=== PATIENT | female | born 1980 ===

== ENCOUNTER 2018-10-17 03:13 | Emergency (ER) | payer OTHER, SELFPAY ==
[2018-10-17 03:20] VITALS: BP 150/96; PULSE 80; RESP 16; TEMP 36.7; O2SAT 97; BMI 32.5
--- NOTE | 2018-10-17 03:37 | DI.US.S_ITS ---
PROCEDURE: US PELVIC COMPLETE INDICATIONS: SEVERE RIGHT LOWER QUADRANT PAIN, VAGINAL BLEEDING TECHNIQUE: Real-time scanning was performed of the pelvic organs, with image documentation. Additional endovaginal scanning was necessary due to incomplete visualization of the adnexal and endometrial structures by transabdominal scanning. COMPARISON: None. FINDINGS: Transabdominal scanning: Limited scanning through the kidneys shows no hydronephrosis. No pathologic free abdominal or pelvic fluid. Endovaginal scanning: Uterus: Uterus is normal in size at 8.7 x 4.3 x 4.6 cm. The endometrium measures 4 mm in combined thickness. Heterogeneous myometrium echotexture is seen. 2 x 1.7 x 2.1 cm intramural fibroid is seen in posterior myometrium. Small nabothian cysts are noted in the endocervical canal with a few punctate calcifications. No gross endometrial mass or fluid. Ovaries: Right ovary measures 2.8 x 1.6 x 1.8 cm in size. Left ovary measures 2.8 x 1.4 x 1.8 cm in size. Dominant follicle in right ovary is seen and measures 1 cm in size. No gross solid appearing ovary lesion. Normal blood flow is seen in bilateral ovaries on color Doppler images. IMPRESSION: #1. Intramural fibroid as above. No gross endometrial mass or fluid. #2. No gross abnormality is seen in bilateral ovaries. No significant discrepancies. Dictated by: Girma Luevano M.D. on 10/17/2018 at 8:22 Approved by: Girma Luevano M.D. on 10/17/2018 at 8:34
[2018-10-17] MEDS: KETOROLAC 60 MG/2 ML VIAL 15 MG IV (03:45)
[2018-10-17] MEDS: ONDANSETRON 4 MG/2 ML INJ IV (03:45)
[2018-10-17 03:46] LABS: Appearance Urine UA CLEAR; Bilirubin Urine UA NEGATIVE (NEGATIVE); Color Urine UA YELLOW; Glucose Urine UA NEGATIVE (Negative); Ketones Urine UA NEGATIVE (NEGATIVE); Leukocyte Esterase Urine UA TRACE (NEGATIVE); Nitrite Urine UA NEGATIVE (Negative); Occult Blood Urine UA 3+ (Negative); Protein Urine UA NEGATIVE (Negative); Urobilinogen Urine UA 0.2 E.U./dL (0.2); pH Urine UA 5.5 (4.5-8.0)
[2018-10-17 04:03] LABS: Add Manual Diff / Slide Review NO; Basophils Absolute Auto 100 /uL (0-100); Eosinophils Absolute Auto 100 /uL (0-450); Eosinophils Percent Auto 0.9 % (2-4); Hematocrit 43.7 % (36-46); Hemoglobin 14.9 g/dL (12.0-16.0); Lymphocytes Absolute Auto 3200 /uL (1100-4500); Lymphocytes Percent Auto 24.4 % (25-40); Mean Corpuscular HGB Conc 34.1 % (30-36); Mean Corpuscular Hemoglobin 29.4 PG (26-34); Mean Corpuscular Volume 86.4 fL (80-100); Monocytes Absolute Auto 700 /uL (0-900); Monocytes Percent Auto 5.3 % (3-14); Neutrophils Absolute Auto 9000 /uL (1500-7000); Neutrophils Percent Auto 68.4 % (50-75); Platelet Count 272 X10^3/uL (150-400); Red Blood Cell Count 5.06 X10^6/uL (4.0-5.2); Red Cell Distribution Width 14.3 % (11.6-14.8); White Blood Cell Count 13.1 X10^3/uL (4.5-11.0)
--- NOTE | 2018-10-17 04:04 | ED_ITS ---
HPI - Abdominal Pain General Chief Complaint: Abdominal Pain Stated Complaint: Pain in bottom right side of stomach Time Seen by Provider: 10/17/18 03:15 Source: patient Mode of arrival: ambulatory Limitations: no limitations History of Present Illness HPI narrative: 38-year-old female smoker with minimal medical history presents with a chief complaint of sudden onset right lower quadrant pain with the passage of some dark clots vaginally. She has not had a period in many years, since she had an ablation. She denies any dysuria, frequency or urgency. She denies any vomiting but has been nauseated. She has had no fever or shaking chills. She states her symptoms came on very suddenly. Her pain is worse with motion and improves with rest. MD complaint: abdominal pain Onset (ago): hour(s) Pain Consistency: constant Location: RLQ Severity: moderate Quality: cramping and aching Radiation: none Migration to: no migration Relieving factors: nothing Exacerbating factors: nothing Context: foreign travel Related Data Previous Rx's Medication Instructions Recorded ketorolac 10 mg PO Q6H PRN #14 tab 10/17/18 ondansetron 4 mg PO TID-QID PRN #10 tab 10/17/18 Allergies Allergy/AdvReac Type Severity Reaction Status Date / Time Penicillins Allergy Verified 10/17/18 03:31 Review of Systems Constitutional Denies chills, Denies fever(s), Denies lethargy and Denies weakness Eyes Denies change in vision, Denies eye discharge, Denies irritation and Denies loss of vision ENT Ears, Nose, Mouth, and Throat: Denies change in voice, Denies neck pain and Denies sore throat Cardiovascular Denies chest pain, Denies irregular heart rhythm, Denies lightheadedness, Denies palpitations, Denies dyspnea, Denies dyspnea on exertion and Denies orthopnea Respiratory Denies cough, Denies dyspnea, Denies dyspnea on exertion and Denies wheezing Gastrointestinal Gastrointestinal: Reports abdominal pain, Denies change in bowel habits, Denies diarrhea, Denies nausea and Denies vomiting Genitourinary Reports abnormal vaginal bleeding, Denies hematuria, Denies flank pain, Denies urinary incontinence and Denies urinary urgency Musculoskeletal Denies neck pain Integumentary/Breasts Denies pruritus, Denies erythema, Denies rash and Denies wounds Neurologic Denies confusion, Denies loss of vision and Denies weakness Psychiatric Denies anxiety, Denies confusion, Denies depression, Denies homicidal ideation and Denies suicidal ideation Endocrine Denies palpitations Hematologic/Lymphatic Denies easy bruising Allergic/Immunologic Denies wheezing PFSH Social History Smoking Status: Current every day smoker Social History Smoking Status: Current every day smoker Exam Narrative Exam Narrative: GENERAL: 38-year-old female, obviously in some discomfort, morbidly obese HEAD: Atraumatic. Normocephalic. No temporal or scalp tenderness. EYES: Pupils equal round and reactive. Extraocular motions intact. No scleral icterus. No injection or drainage. ENT: Nose without bleeding, purulent drainage or septal hematoma. Throat without erythema, tonsillar hypertrophy or exudate. Uvula midline. Airway patent. NECK: Trachea midline. No JVD or lymphadenopathy. Supple, nontender, no meningeal signs. CARDIOVASCULAR: Regular rate and rhythm without murmurs, gallops, or rubs. RESPIRATORY: Clear to auscultation. Breath sounds equal bilaterally. No wheezes, rales, or rhonchi. GASTROINTESTINAL: Abdomen soft, tender right lower quadrant, nondistended. No hepato-splenomegaly, or palpable masses. No guarding. EXTREMITIES: No clubbing, cyanosis, or edema. No joint tenderness, effusion, or edema noted. BACK: Nontender without deformity or crepitance. No flank tenderness. NEURO: AOx3. SKIN: No rash or erythema. Initial Vital Signs Initial Vital Signs: Vital Signs Temperature 98.0 F 10/17/18 03:20 Pulse Rate 80 10/17/18 03:20 Respiratory Rate 16 10/17/18 03:20 Blood Pressure 150/96 H 10/17/18 03:20 Pulse Oximetry 97 10/17/18 03:20 Course Orders Ordered: ED Orders 10/17/18 03:35 Urinalysis and Microscopic Stat Urine Culture Stat 10/17/18 03:37 US pelvic complete Stat 10/17/18 03:54 Basic Metabolic Panel Stat Complete Blood Count AUTO DIFF Stat Ondansetron HCl (Zofran) 4 mg IV Q4HR PRN PRN Reason: Nausea And Vomiting Last Admin: 10/17/18 03:45 Dose: 4 mg Discontinued Medications Acetaminophen (Tylenol) 650 mg PO NOW ONE Stop: 10/17/18 04:40 Last Admin: 10/17/18 04:40 Dose: 650 mg Hydrocodone Bitart/Acetaminophen (Vicodin Prepack) 1 bottle MISC SEEINSTR ONE Stop: 10/17/18 05:11 Ketorolac Tromethamine (Toradol) 15 mg IV NOW ONE Stop: 10/17/18 03:37 Last Admin: 10/17/18 03:45 Dose: 15 mg Vital Signs - 8 hr 10/17/18 03:20 Temperature 98.0 F Pulse Rate 80 Respiratory Rate 16 Blood Pressure 150/96 H Pulse Oximetry 97 MDM - Abdominal Pain Lab Data Result diagrams: 10/17/18 03:54 10/17/18 03:54 Lab Results 10/17/18 10/17/18 10/17/18 Range/Units 03:35 03:54 03:54 WBC 13.1 H (4.5-11.0) X10^3/uL RBC 5.06 (4.0-5.2) X10^6/uL Hgb 14.9 (12.0-16.0) g/dL Hct 43.7 (36-46) % MCV 86.4 (80-100) fL MCH 29.4 (26-34) PG MCHC 34.1 (30-36) % RDW 14.3 (11.6-14.8) % Plt Count 272 (150-400) X10^3/uL Neut % (Auto) 68.4 (50-75) % Lymph % (Auto) 24.4 L (25-40) % [place] % (Auto) 5.3 (3-14) % Eos % (Auto) 0.9 L (2-4) % Baso % (Auto) 1.0 (0-2) % Neut # (Auto) 9000 H (9149-7871) /uL Lymph # (Auto) 3200 (2769-8416) /uL [place] # (Auto) 700 (0-900) /uL Eos # (Auto) 100 (0-450) /uL Baso # (Auto) 100 (0-100) /uL Sodium 141 (137-145) mmol/L Potassium 3.6 (3.4-5.1) mmol/L Chloride 105 (98-107) mmol/L Carbon Dioxide 27 (22-32) mmol/L BUN 9 (7-17) mg/dL Creatinine 0.60 (0.52-1.04) mg/dL Estimated GFR > 60.0 (>60) mL/min BUN/Creatinine Ratio 15.0 (6-22) Glucose 97 (70-100) mg/dL Calcium 8.7 (8.4-10.2) mg/dL Urine Color Yellow Urine Appearance Clear Urine pH 5.5 (4.5-8.0) Ur Specific [place] 1.010 (1.000-1.035) Urine Protein Negative (Negative) Urine Glucose (UA) Negative (Negative) g/dL Urine Ketones Negative (NEGATIVE) Urine Occult Blood 3+ H (Negative) Urine Nitrate Negative (Negative) Urine Bilirubin Negative (NEGATIVE) Urine Urobilinogen 0.2 (0.2) E.U./dL Ur Leukocyte Esterase Trace H (NEGATIVE) Urine RBC 1-5/hpf (0-5/HPF) Urine WBC 0-1/hpf (0-5/HPF) Ur Squamous Epith Cells 1-5 /hpf Urine Bacteria Few (2-10) H (None) Ur Culture Indicated? Specimen cultured Point of care testing: Point of Care Testing Test Results Negative Urine Dip Bedside Urine Glucose Negative Bedside Urine Bilirubin - Negative Bedside Urine Ketone - Negative Urine Specific [place] 1.015 Bedside Urine Occult Blood +++ Bedside Urine Protein - Negative Bedside Urine Urobilinogen - Negative Bedside Urine Nitrite - Negative Bedside Urine Leukocytes +/- 15 Esterase Imaging Data US - abdomen: Radiologist's impression: Normal sonographic appearance of the endometrium and bilateral adnexa. Fibroid uterus Discharge Plan Departure Patient Disposition: Home Clinical Impression: Abnormal vaginal bleeding Fibroid, uterine Qualifiers: Uterine leiomyoma location: unspecified location Qualified Code(s): D25.9 - Leiomyoma of uterus, unspecified Instructions: DI for Vaginal Bleeding, DI for Pelvic Pain Activity Restrictions/Additional Instructions: *You have been diagnosed with [ acute pelvic pain with vaginal bleeding, likely uterine fibroid ] *What to do: *Take medications as directed *Follow up with your primary care provider in 2-3 days, call for an appointment. Let them know you were seen in the Emergency Department and that we ask that you be seen in follow up *Return to ER if you should have any new, worsening or concerning symptoms Prescriptions: New ketorolac 10 mg tablet 10 mg PO Q6H PRN (Reason: pain) Qty: 14 RF: 0 ondansetron 4 mg tablet,disintegrating 4 mg PO TID-QID PRN (Reason: nausea and vomiting) Qty: 10 RF: 0 Referrals: Suki Alvares MD [Physician] -
[2018-10-17 04:05] LABS: Bacteria Urine Few (2-10); Culture Indicated Urine Specimen Cultured; RBC Urine 1-5/HPF (0-5/HPF); Squamous Epithelial Cell Urine 1-5 /HPF; WBC Urine 0-1/HPF (0-5/HPF)
[2018-10-17 04:07] LABS: Blood Urea Nitrogen 9 mg/dL (7-17); Calcium 8.7 mg/dL (8.4-10.2); Carbon Dioxide 27 mmol/L (22-32); Chloride 105 mmol/L (98-107); Estimated Glomerular Filt Rate > 60.0 mL/min (>60); Glucose 97 mg/dL (70-100); HEMOLYSIS 15 (0-50); Potassium 3.6 mmol/L (3.4-5.1); Sodium 141 mmol/L (137-145)
[2018-10-17] MEDS: ACETAMINOPHEN 325 MG TABLET 650 MG PO (04:40)
[2018-10-17] MEDS: HYDROCODONE/ACET 5/325 PREPACK 1 BOTTLE MISC (05:10)
[2018-10-17 05:23] VITALS: BP 112/70; PULSE 69; RESP 12; O2SAT 96
== END 2018-10-17 05:15 | disposition home or self-care (01) ==
PROVIDERS: Emergency Provider Emergency Medicine
DX: N93.9 Abnormal uterine and vaginal bleeding, unspecified (principal); D25.9 Leiomyoma of uterus, unspecified; R10.9 Unspecified abdominal pain
CPT/HCPCS: 36591; 76830; 76856; 80048; 81001; 81003; 81025; 85025; 87086; 96374; 96375; 99282; 99284; J1885; J2405

== ENCOUNTER 2018-10-19 20:23 | Emergency (ER) | payer OTHER, SELFPAY ==
[2018-10-19 20:25] VITALS: BP 126/77; PULSE 85; RESP 18; TEMP 36.7; O2SAT 99; BMI 32.5
--- NOTE | 2018-10-19 20:44 | DI.US.S_ITS ---
PROCEDURE: US PELVIC COMPLETE INDICATIONS: PAIN TECHNIQUE: Real-time scanning was performed of the pelvic organs, with image documentation. Additional endovaginal scanning was necessary due to incomplete visualization of the adnexal and endometrial structures by transabdominal scanning. COMPARISON: [facility], , US PELVIC COMPLETE, 10/17/2018, 4:11. FINDINGS: Transabdominal scanning: Limited scanning through the kidneys shows no hydronephrosis. No pathologic free abdominal or pelvic fluid. Endovaginal scanning: Uterus: Uterus is normal in size at 7.9 x 4.1 x 6.1 cm. The endometrium measures 4.2 mm in combined thickness. Heterogeneous myometrial echotexture is noted. No discrete uterine fibroid is seen. No gross endometrial mass or fluid. Ovaries: Right ovary measures 2.6 x 2.3 x 2.3 cm in size. Left ovary measures 2.6 x 1.4 x 1.5 cm in size. No gross solid or paraovarian lesion. Normal blood flow seen in bilateral ovaries on color Doppler images. IMPRESSION: Unremarkable ultrasound examination of pelvis. Dictated by: Girma Luevano M.D. on 10/19/2018 at 21:36 Approved by: Girma Luevano M.D. on 10/19/2018 at 21:38
[2018-10-19] MEDS: SODIUM CHLORIDE 0.9% 1,000 ML 1000 ML IV (20:55)
[2018-10-19 20:56] LABS: Add Manual Diff / Slide Review NO; Basophils Absolute Auto 100 /uL (0-100); Basophils Percent Auto 1.3 % (0-2); Eosinophils Absolute Auto 100 /uL (0-450); Eosinophils Percent Auto 0.7 % (2-4); Hematocrit 43.6 % (36-46); Hemoglobin 14.8 g/dL (12.0-16.0); Lymphocytes Absolute Auto 2700 /uL (1100-4500); Lymphocytes Percent Auto 24.9 % (25-40); Mean Corpuscular HGB Conc 33.9 % (30-36); Mean Corpuscular Hemoglobin 29.5 PG (26-34); Mean Corpuscular Volume 86.8 fL (80-100); Monocytes Absolute Auto 500 /uL (0-900); Monocytes Percent Auto 4.6 % (3-14); Neutrophils Absolute Auto 7400 /uL (1500-7000); Neutrophils Percent Auto 68.5 % (50-75); Platelet Count 261 X10^3/uL (150-400); Red Blood Cell Count 5.03 X10^6/uL (4.0-5.2); Red Cell Distribution Width 14.8 % (11.6-14.8); White Blood Cell Count 10.8 X10^3/uL (4.5-11.0)
[2018-10-19 21:01] LABS: Alanine Aminotransferase 18 IU/L (9-52); Albumin 4.2 g/dL (3.5-5.0); Albumin Globulin Ratio 1.3 (1.0-2.8); Alkaline Phosphatase 48 U/L (38-126); Aspartate Aminotransferase 18 IU/L (14-36); BUN Creatinine Ratio 16.3 (6-22); Bilirubin Total 0.3 mg/dL (0.2-1.3); Blood Urea Nitrogen 13 mg/dL (7-17); Calcium 8.8 mg/dL (8.4-10.2); Carbon Dioxide 28 mmol/L (22-32); Chloride 104 mmol/L (98-107); Estimated Glomerular Filt Rate > 60.0 mL/min (>60); Globulin 3.2 g/dL (1.7-4.1); Glucose 118 mg/dL (70-100); HEMOLYSIS < 15 (0-50); Potassium 3.7 mmol/L (3.4-5.1); Sodium 140 mmol/L (137-145); Total Protein 7.4 g/dL (6.3-8.2)
--- NOTE | 2018-10-19 21:04 | ED.FEMALEGU ---
HPI - Female Genitourinary <STEWART Robb - Last Filed: 10/19/18 21:57> General Chief complaint: Vaginal Bleeding Stated complaint: lower right abdominal pain x several days Time Seen by Provider: 10/19/18 20:27 Source: patient Mode of arrival: ambulatory Limitations: no limitations History of Present Illness HPI Narrative: Patient is a 38-year-old female who was seen at this facility 2 days ago. She was diagnosed with uterine fibroids at that point time. She comes back with worsening right lower quadrant pain, which her Toradol is not helping. She continues to complain of nausea. She also complains of difficulty having bowel movements. She denies any fevers vomiting or diarrhea. She states she is back because her pain is significantly worse and she is worried as she is still bleeding. She states that her right lower quadrant pain is now going across her stomach. She denies any dysuria urgency or frequency. She states she has had a tubal ligation. 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 She does complain of slight dizziness and lightheadedness, especially when moving. Related Data Previous Rx's Medication Instructions Recorded ketorolac 10 mg PO Q6H PRN #14 tab 10/17/18 ondansetron 4 mg PO TID-QID PRN #10 tab 10/17/18 Allergies Allergy/AdvReac Type Severity Reaction Status Date / Time Penicillins Allergy Verified 10/17/18 03:31 Review of Systems <STEWART Robb - Last Filed: 10/19/18 21:57> Review of Systems GENERAL: Denies chills, fatigue, malaise, fever, sweats. HEENT: Denies sinus pain, ear pain, sore throat, difficulty swallowing, dizziness. RESPIRATORY: Denies dyspnea, cough, wheezing, hemoptysis, sputum. CARDIOVASCULAR: Denies chest pain, palpitations, orthopnea, edema, GASTROINTESTINAL: See HPI : See HPI MUSCULOSKELETAL: denies weakness, joint pain, or bony pain SKIN: Denies rash, skin lesions, or other NEUROLOGIC: Denies weakness, headache, numbness, change in speech, confusion, seizures, incoordination. PSYCHIATRIC: No concerning psychosocial issues. 12 point review of systems is negative except for those stated above PFSH <STEWART RobbDANTE - Last Filed: 10/19/18 21:57> Social History Smoking Status: Current every day smoker Exam <GAURAV Robb - Last Filed: 10/19/18 21:57> Narrative Exam Narrative: GENERAL: Obese female lying on stretcher appears teary HEAD: Atraumatic. Normocephalic. No temporal or scalp tenderness. EYES: Pupils equal round and reactive. Extraocular motions intact. No scleral icterus. No injection or drainage. ENT: Nose without bleeding, purulent drainage or septal hematoma. Throat without erythema, tonsillar hypertrophy or exudate. Uvula midline. Airway patent. NECK: Trachea midline. No JVD or lymphadenopathy. Supple, nontender, no meningeal signs. CARDIOVASCULAR: Regular rate and rhythm RESPIRATORY: Clear to auscultation. Breath sounds equal bilaterally. No wheezes, rales, or rhonchi. No cough. No increased respiratory effort. GASTROINTESTINAL: Abdomen soft, active bowel sounds all 4 quadrants, nondistended. No hepato-splenomegaly, or palpable masses. No guarding. diffuse tenderness right lower quadrant suprapubic area. EXTREMITIES: No clubbing, cyanosis, or edema. No joint tenderness, effusion, or edema noted. BACK: Nontender without deformity or crepitance. No flank tenderness. NEURO: AOx3. SKIN: No rash or erythema. Initial Vital Signs Initial Vital Signs: Vital Signs Temperature 98.1 F 10/19/18 20:25 Pulse Rate 85 10/19/18 20:25 Respiratory Rate 18 10/19/18 20:25 Blood Pressure 126/77 10/19/18 20:25 Pulse Oximetry 99 10/19/18 20:25 <Leigh Chatman MD - Last Filed: 10/19/18 23:10> Initial Vital Signs Initial Vital Signs: Vital Signs Temperature 98.1 F 10/19/18 20:25 Pulse Rate 85 10/19/18 20:25 Respiratory Rate 18 10/19/18 20:25 Blood Pressure 126/77 10/19/18 20:25 Pulse Oximetry 99 10/19/18 20:25 Course <GAURAV Robb - Last Filed: 10/19/18 21:57> Orders Ordered: ED Orders 10/19/18 20:41 Complete Blood Count AUTO DIFF Stat Comprehensive Metabolic Panel Stat Type and Screen Stat 10/19/18 20:44 US pelvic complete Stat Discontinued Medications Hydrocodone Bitart/Acetaminophen ([place] 5/325) 2 tab PO NOW ONE Stop: 10/19/18 21:44 Last Admin: 10/19/18 21:57 Dose: 2 tab Hydrocodone Bitart/Acetaminophen (Vicodin Prepack) 1 bottle MISC SEEINSTR ONE Stop: 10/19/18 21:44 Last Admin: 10/19/18 21:56 Dose: 1 bottle Sodium Chloride (Normal Saline 0.9%) 1,000 mls @ 1,000 mls/hr IV BOLUS ONE Stop: 10/19/18 21:40 Last Infusion: 10/19/18 22:02 Dose: 0 mls/hr Admin: 10/19/18 20:55 Dose: 1,000 mls/hr Ketorolac Tromethamine (Toradol) 30 mg IV NOW ONE Stop: 10/19/18 21:28 Last Admin: 10/19/18 21:35 Dose: 30 mg Ondansetron HCl (Zofran) 4 mg IV NOW ONE Stop: 10/19/18 21:28 Last Admin: 10/19/18 21:35 Dose: 4 mg Vital Signs - 8 hr 10/19/18 20:25 10/19/18 21:56 Temperature 98.1 F Pulse Rate 85 70 Respiratory Rate 18 16 Blood Pressure 126/77 Blood Pressure [Right Arm] 108/70 Pulse Oximetry 99 100 <Leigh Chatman MD - Last Filed: 10/19/18 23:10> Orders Ordered: ED Orders 10/19/18 20:41 Complete Blood Count AUTO DIFF Stat Comprehensive Metabolic Panel Stat Type and Screen Stat 10/19/18 20:44 US pelvic complete Stat Discontinued Medications Hydrocodone Bitart/Acetaminophen ([place] 5/325) 2 tab PO NOW ONE Stop: 10/19/18 21:44 Last Admin: 10/19/18 21:57 Dose: 2 tab Hydrocodone Bitart/Acetaminophen (Vicodin Prepack) 1 bottle MISC SEEINSTR ONE Stop: 10/19/18 21:44 Last Admin: 10/19/18 21:56 Dose: 1 bottle Sodium Chloride (Normal Saline 0.9%) 1,000 mls @ 1,000 mls/hr IV BOLUS ONE Stop: 10/19/18 21:40 Last Infusion: 10/19/18 22:02 Dose: 0 mls/hr Admin: 10/19/18 20:55 Dose: 1,000 mls/hr Ketorolac Tromethamine (Toradol) 30 mg IV NOW ONE Stop: 10/19/18 21:28 Last Admin: 10/19/18 21:35 Dose: 30 mg Ondansetron HCl (Zofran) 4 mg IV NOW ONE Stop: 10/19/18 21:28 Last Admin: 10/19/18 21:35 Dose: 4 mg Vital Signs - 8 hr 10/19/18 20:25 10/19/18 21:56 Temperature 98.1 F Pulse Rate 85 70 Respiratory Rate 18 16 Blood Pressure 126/77 Blood Pressure [Right Arm] 108/70 Pulse Oximetry 99 100 MDM - Female Genitourinary <STEWART Robb - Last Filed: 10/19/18 21:57> Lab Data Result diagrams: 10/19/18 20:41 10/19/18 20:41 Lab Results 10/19/18 10/19/18 10/19/18 Range/Units 20:41 20:41 20:41 WBC 10.8 (4.5-11.0) X10^3/uL RBC 5.03 (4.0-5.2) X10^6/uL Hgb 14.8 (12.0-16.0) g/dL Hct 43.6 (36-46) % MCV 86.8 (80-100) fL MCH 29.5 (26-34) PG MCHC 33.9 (30-36) % RDW 14.8 (11.6-14.8) % Plt Count 261 (150-400) X10^3/uL Neut % (Auto) 68.5 (50-75) % Lymph % (Auto) 24.9 L (25-40) % [place] % (Auto) 4.6 (3-14) % Eos % (Auto) 0.7 L (2-4) % Baso % (Auto) 1.3 (0-2) % Neut # (Auto) 7400 H (3331-6486) /uL Lymph # (Auto) 2700 (7884-1089) /uL [place] # (Auto) 500 (0-900) /uL Eos # (Auto) 100 (0-450) /uL Baso # (Auto) 100 (0-100) /uL Sodium 140 (137-145) mmol/L Potassium 3.7 (3.4-5.1) mmol/L Chloride 104 (98-107) mmol/L Carbon Dioxide 28 (22-32) mmol/L BUN 13 (7-17) mg/dL Creatinine 0.80 (0.52-1.04) mg/dL Estimated GFR > 60.0 (>60) mL/min BUN/Creatinine Ratio 16.3 (6-22) Glucose 118 H (70-100) mg/dL Calcium 8.8 (8.4-10.2) mg/dL Total Bilirubin 0.3 (0.2-1.3) mg/dL AST 18 (14-36) IU/L ALT 18 (9-52) IU/L Alkaline Phosphatase 48 (38-126) U/L Total Protein 7.4 (6.3-8.2) g/dL Albumin 4.2 (3.5-5.0) g/dL Globulin 3.2 (1.7-4.1) g/dL Albumin/Globulin Ratio 1.3 (1.0-2.8) Blood Type A Positive Antibody Screen Negative Point of Care Testing Test Results Negative Urine Dip Bedside Urine Glucose Negative Bedside Urine Bilirubin - Negative Bedside Urine Ketone - Negative Urine Specific [place] 1.020 Bedside Urine Occult Blood +++ Bedside Urine pH 5.5 Bedside Urine Protein - Negative Bedside Urine Urobilinogen - Negative Bedside Urine Nitrite - Negative Bedside Urine Leukocytes - Negative Esterase Imaging Data US - abdomen: Radiologist's impression: [address] [id number] Ultrasound Report Signed Patient: Malu Joshua [facility]#: [id number] : 1980Acct:[id number] Age/Sex: 38 / FDate of Service: 10/19/18 Loc: ED Accession Number: [id number] Procedure: US pelvic complete Ordering Provider: Yenny Ray PERSONAL DEVELOPMENT COACH-BC PROCEDURE: US PELVIC COMPLETE INDICATIONS: PAIN TECHNIQUE: Real-time scanning was performed of the pelvic organs, with image documentation. Additional endovaginal scanning was necessary due to incomplete visualization of the adnexal and endometrial structures by transabdominal scanning. COMPARISON: [facility], US, US PELVIC COMPLETE, 10/17/2018, 4:11. FINDINGS: Transabdominal scanning: Limited scanning through the kidneys shows no hydronephrosis. No pathologic free abdominal or pelvic fluid. Endovaginal scanning: Uterus: Uterus is normal in size at 7.9 x 4.1 x 6.1 cm. The endometrium measures 4.2 mm in combined thickness. Heterogeneous myometrial echotexture is noted. No discrete uterine fibroid is seen. No gross endometrial mass or fluid. Ovaries: Right ovary measures 2.6 x 2.3 x 2.3 cm in size. Left ovary measures 2.6 x 1.4 x 1.5 cm in size. No gross solid or paraovarian lesion. Normal blood flow seen in bilateral ovaries on color Doppler images. IMPRESSION: Unremarkable ultrasound examination of pelvis. Dictated by: Girma Luevano M.D. on 10/19/2018 at 21:36 Approved by: Girma Luevano M.D. on 10/19/2018 at 21:38 MDM Narrative Medical decision making narrative: Patient is a 38-year-old female who presents with a chief complaint of vaginal bleeding and lower abdominal pain. She was recently diagnosed with a fibroid and plans on following up with OB. She complained of severe increased vaginal bleeding, but her H&H is stable on exam. I repeated the ultrasound given her complaints of increased pain and bleeding, which found no fibroid. I wonder if she passed her fibroid tissue. She was given IV fluid, Toradol and Zofran in the emergency department. I did discharge her with a [place] take-home pack and instructed to follow up with her primary care provider. Discussed coming back to the emergency department for emergent concerns, as well as following up with OB as planned. She states that she has enough Zofran at home. I discussed the fact that this can be constipating. She is hemodynamically stable and afebrile throughout her stay in the emergency department. <Leigh Chatman MD - Last Filed: 10/19/18 23:10> Lab Data Lab Results 10/19/18 10/19/18 10/19/18 Range/Units 20:41 20:41 20:41 WBC 10.8 (4.5-11.0) X10^3/uL RBC 5.03 (4.0-5.2) X10^6/uL Hgb 14.8 (12.0-16.0) g/dL Hct 43.6 (36-46) % MCV 86.8 (80-100) fL MCH 29.5 (26-34) PG MCHC 33.9 (30-36) % RDW 14.8 (11.6-14.8) % Plt Count 261 (150-400) X10^3/uL Neut % (Auto) 68.5 (50-75) % Lymph % (Auto) 24.9 L (25-40) % [place] % (Auto) 4.6 (3-14) % Eos % (Auto) 0.7 L (2-4) % Baso % (Auto) 1.3 (0-2) % Neut # (Auto) 7400 H (1758-7312) /uL Lymph # (Auto) 2700 (5484-2224) /uL [place] # (Auto) 500 (0-900) /uL Eos # (Auto) 100 (0-450) /uL Baso # (Auto) 100 (0-100) /uL Sodium 140 (137-145) mmol/L Potassium 3.7 (3.4-5.1) mmol/L Chloride 104 (98-107) mmol/L Carbon Dioxide 28 (22-32) mmol/L BUN 13 (7-17) mg/dL Creatinine 0.80 (0.52-1.04) mg/dL Estimated GFR > 60.0 (>60) mL/min BUN/Creatinine Ratio 16.3 (6-22) Glucose 118 H (70-100) mg/dL Calcium 8.8 (8.4-10.2) mg/dL Total Bilirubin 0.3 (0.2-1.3) mg/dL AST 18 (14-36) IU/L ALT 18 (9-52) IU/L Alkaline Phosphatase 48 (38-126) U/L Total Protein 7.4 (6.3-8.2) g/dL Albumin 4.2 (3.5-5.0) g/dL Globulin 3.2 (1.7-4.1) g/dL Albumin/Globulin Ratio 1.3 (1.0-2.8) Blood Type A Positive Antibody Screen Negative Point of Care Testing Test Results Negative Urine Dip Bedside Urine Glucose Negative Bedside Urine Bilirubin - Negative Bedside Urine Ketone - Negative Urine Specific [place] 1.020 Bedside Urine Occult Blood +++ Bedside Urine pH 5.5 Bedside Urine Protein - Negative Bedside Urine Urobilinogen - Negative Bedside Urine Nitrite - Negative Bedside Urine Leukocytes - Negative Esterase Discharge Plan Departure Patient Disposition: Home Clinical Impression: Abnormal vaginal bleeding Abdominal pain Qualifiers: Abdominal location: right lower quadrant Qualified Code(s): R10.31 - Right lower quadrant pain Discharge Date/Time: 10/19/18 22:13 Interventions: ED Discharge Assessment Last Done: 10/19/18 22:13 Instructions: DI for Abdominal Pain-Adult, DI for Vaginal Bleeding Activity Restrictions/Additional Instructions: Your blood levels are stable in the emergency department today. Your ultrasound shows no fibroid. I wonder if you passed the fibroid tissue. I would like you to follow up with OBGYN as discussed. We have given use or pain medication. He states even of nausea medication. Please continue to take ibuprofen or Toradol. Do not combine them. Do not take them for another 8 hours after the Toradol injection in the emergency department. Please follow up with OBGYN as we discussed. Come back to emergency department for any acute concerns such as fever with abdominal pain, or passing out. Prescriptions: No Action ketorolac 10 mg tablet 10 mg PO Q6H PRN (Reason: pain) Qty: 14 RF: 0 ondansetron 4 mg tablet,disintegrating 4 mg PO TID-QID PRN (Reason: nausea and vomiting) Qty: 10 RF: 0 Referrals: Suki Alvares MD [Physician] -
[2018-10-19] MEDS: ONDANSETRON 4 MG/2 ML INJ IV (21:35)
[2018-10-19] MEDS: KETOROLAC 60 MG/2 ML VIAL 30 MG IV (21:35)
[2018-10-19 21:56] VITALS: BP 108/70; PULSE 70; RESP 16; O2SAT 100
[2018-10-19] MEDS: HYDROCODONE/ACET 5/325 PREPACK 1 BOTTLE MISC (21:56)
[2018-10-19] MEDS: HYDROCODONE/ACET 5/325 TABLET 2 TAB PO (21:57)
== END 2018-10-19 22:13 | disposition home or self-care (01) ==
PROVIDERS: Emergency Provider Nurse Practitioner Family
DX: R10.31 Right lower quadrant pain (principal)
CPT/HCPCS: 36591; 76830; 76856; 80053; 81003; 81025; 85025; 86850; 86900; 86901; 96361; 96374; 96375; 99283; 99284; J1885; J2405

== ENCOUNTER → 2019-09-29 15:02 | Outpatient (CLI) | payer OTHER, SELFPAY | PROVIDERS: Visit Provider Physician Assistant | DX: J02.9 Acute pharyngitis, unspecified (principal) | CPT/HCPCS: 87070 ==

== ENCOUNTER 2020-01-10 20:13 | Emergency (ER) | payer OTHER, SELFPAY ==
--- NOTE | 2020-01-10 20:15 | ED_ITS ---
HPI - Eye Problem General Chief complaint: Eye Problems Stated complaint: really blurry vision,hurts Time Seen by Provider: 01/10/20 20:15 Source: patient and family Mode of arrival: Ambulatory Limitations: no limitations History of Present Illness HPI Narrative: 39F daily smoker with history of hypothyroidism presents with her in the chief complaint of a irritated left eye and some blurring of her vision. She states that she accidentally fell asleep with her contacts in and awoke with her complaints. She denies any injury and states that she is not currently wearing her contacts. She states that she can see colors, shapes and motion but states that vision from her left eye only is blurry. It has not changed over the course of the day. She denies any drainage or watering. She states that it is worse under a bright light and seems to be better when it is dark. She denies any history of the same MD chief complaint: eye pain and vision change Onset description: awoke with symptoms Duration: constant Location: left eye Eye Symptoms: pain and blurry vision Place: home Severity: moderate If Pain, Quality: aching Associated symptoms: none Treatments Prior to Arrival: none Related Data Patient tetanus UTD: Yes Home Medications Medication Instructions Recorded Confirmed levothyroxine 150 mcg capsule 150 mcg PO DAILY 11/17/18 09/29/19 Allergies Allergy/AdvReac Type Severity Reaction Status Date / Time Penicillins Allergy Verified 09/29/19 12:06 Review of Systems Constitutional Constitutional: Denies chills, Denies fatigue, Denies fever(s), Denies frequent falls, Denies lethargy and Denies weakness Eyes Eyes: Reports change in vision, Denies eye discharge, Denies irritation, Denies loss of vision and Reports eye pain ENT Ears, Nose, Mouth, and Throat: Denies change in voice, Denies dizziness, Denies neck pain, Denies sore throat and Denies throat swelling Cardiovascular Cardiovascular: Denies chest pain, Denies irregular heart rhythm, Denies lightheadedness, Denies palpitations, Denies dyspnea, Denies dyspnea on exertion and Denies orthopnea Respiratory Respiratory: Denies cough, Denies dyspnea, Denies dyspnea on exertion and Denies wheezing Gastrointestinal Gastrointestinal: Denies abdominal pain, Denies change in bowel habits, Denies diarrhea, Denies nausea and Denies vomiting Musculoskeletal Musculoskeletal: Denies neck pain and Denies numbness Integumentary/Breasts Skin/Breast: Denies pruritus, Denies erythema, Denies rash and Denies wounds Neurologic Neurologic: Denies behavioral changes, Denies confusion, Denies dizziness, Denies frequent falls, Denies loss of vision, Denies numbness and Denies weakness Psychiatric Psychiatric: Denies anxiety, Denies behavioral changes, Denies confusion, Denies depression, Denies homicidal ideation and Denies suicidal ideation Endocrine Endocrine: Denies fatigue, Denies flushing and Denies palpitations Hematologic/Lymphatic Hematologic/Lymphatic: Denies easy bruising Allergic/Immunologic Allergic/Immunologic: Denies urticaria, Denies throat swelling and Denies wheezing Patient History Medical History Otitis media (Acute) Pharyngitis (Acute) Social History Smoking Status: Current every day smoker Smoking Status: Current every day smoker alcohol intake frequency: 0-2 drinks per day Substance Use Type: does not use Exam Narrative Exam Narrative: GENERAL: [39] year old patient appears stated age. Well- nourished, well-developed patient, in mild distress. HEAD: Atraumatic. Normocephalic. EYES: Pupils equal round and reactive. Extraocular motions intact. No scleral icterus. No injection or drainage. No watering. Initially viewed under a Wood's lamp and no foreign body noted, upper lid everted. Moderate improvement in symptoms after proparacaine. Pressure noted to be 17 mm of mercury with Paolo-Pen. I viewed under UV lamp with use of fluorescein and no uptake noted. Normal fundoscopic exam ENT: Nose without bleeding, purulent drainage. Throat without erythema, tonsillar hypertrophy or exudate. Airway patent. NECK: Trachea midline. Non tender CARDIOVASCULAR: Regular rate and rhythm without murmurs, gallops, or rubs. RESPIRATORY: Clear to auscultation. Breath sounds equal bilaterally. No wheezes, rales, or rhonchi. GASTROINTESTINAL: Abdomen soft, non-tender, nondistended. EXTREMITIES: No edema or joint tenderness. BACK: Nontender without deformity or crepitance. No flank tenderness. NEURO: AOx3. SKIN: No rash or erythema of visible areas Initial Vital Signs Initial Vital Signs: Vital Signs Temperature 98.1 F 01/10/20 20:38 Pulse Rate 76 01/10/20 20:38 Respiratory Rate 18 01/10/20 20:38 Blood Pressure 120/79 01/10/20 20:38 Pulse Oximetry 96 01/10/20 20:38 Course Orders Ordered: Discontinued Medications Fluorescein Sodium (Ful-Kierra) 1 mg EYE-LEFT NOW ONE Stop: 01/10/20 20:37 Last Admin: 01/10/20 20:57 Dose: 1 mg Documented by: SCANAPO Proparacaine HCl (Parcaine 0.5% Ophth Evita) 1 drops EYE-LEFT NOW ONE Stop: 01/10/20 20:37 Last Admin: 01/10/20 20:57 Dose: 2 drop Documented by: SCANAPO Vital Signs Vital signs: Vital Signs - 8 hr 01/10/20 20:38 Temperature 98.1 F Pulse Rate 76 Respiratory Rate 18 Blood Pressure 120/79 Pulse Oximetry 96 MDM - Eye Problem MDM Narrative Medical decision making narrative: Multiple etiologies including ulcer/corneal abrasion given history of leaving contact lense in. Thought to be unlikely given lack of findings on exam. Acute angle closure considered, but patient has no erythema, watering, and normal pressure. CRVA/CRAO considered but no retinal pa llor, disk edema or other fundoscopic abnormalities noted. Patient referred to local ophthalmology in the morning and given return precautions. Questions answered to her apparent satisfaction. Discharge Plan Departure Patient Disposition: Home Clinical Impression: Acute eye pain Discharge Date/Time: 01/10/20 22:24 Instructions: DI for Eye Pain Activity Restrictions/Additional Instructions: *You have been diagnosed with [eye pain, likely uveitis] *What to do: *Take medications as directed: tylenol or motrin for pain. An eye patch may help and being in a dark room can help *Follow up with the Records Management Assistant at [facility] tomorrow morning. They request that Emergency Room patients present at about 0830 and they will see you. *Return to ER if you should have any new, worsening or concerning symptoms Prescriptions: No Action levothyroxine 150 mcg capsule 150 mcg PO DAILY RF: 0 Referrals: Bar Laurent MD [Physician] -
[2020-01-10 20:38] VITALS: BP 120/79; PULSE 76; RESP 18; TEMP 36.7; O2SAT 96; BMI 32.5
[2020-01-10] MEDS: PROPARACAINE 0.5% OPHTH SOL 1 DROPS EYE-LEFT (20:57)
[2020-01-10] MEDS: FLUORESCEIN 1 MG STRIP EYE-LEFT (20:57)
== END 2020-01-10 22:24 | disposition home or self-care (01) ==
PROVIDERS: Emergency Provider Emergency Medicine
DX: H57.12 Ocular pain, left eye (principal); H53.8 Other visual disturbances
CPT/HCPCS: 99281; 99282

== ENCOUNTER 2020-11-10 16:34 | Emergency (ER) | payer OTHER, SELFPAY ==
[2020-11-10 16:50] VITALS: BP 122/85; PULSE 78; RESP 15; TEMP 36.6; O2SAT 97; BMI 32.5
--- NOTE | 2020-11-10 16:55 | DI.RAD.S_ITS ---
PROCEDURE: XR ANKLE RT MIN 3V INDICATIONS: rolled ankle TECHNIQUE: 3 views of the ankle were acquired. COMPARISON: None. FINDINGS: Bones: No acute fractures or dislocations. Ankle mortise is normally aligned. No suspicious bony lesions. Soft tissues: No tibiotalar joint effusion. Achilles tendon appears normal. Lateral malleolar soft tissue swelling. IMPRESSION: Lateral malleolar soft tissue swelling without underlying fracture or dislocation. If there is persistent clinical concern for occult fracture given adequate mechanism of injury, consider repeat imaging in 10-14 days. Dictated by: Brennan Flores M.D. on 11/10/2020 at 16:50 Approved by: Brennan Flores M.D. on 11/10/2020 at 16:53
--- NOTE | 2020-11-10 17:06 | ED.LOWEXIN ---
HPI - Extremity Injury (Lower) General Chief Complaint: Extremity Injury, Lower Stated Complaint: right ankle injury, lorraineitple injuries Time Seen by Provider: 11/10/20 16:55 Source: patient Mode of arrival: Ambulatory Limitations: no limitations History of Present Illness HPI Narrative: 40-year-old female daily smoker with history of hypothyroid presents with a chief complaint of right ankle pain with multiple inversion injuries over the past few weeks. Most recently she was walking and inverted her right ankle now has pain laterally and in her distal crisostomo. Her pain is worse with ambulation and improves with rest. She denies any knee or hip pain. She denies any numbness, tingling or weakness. She is otherwise well and free of complaint. MD complaint: ankle injury Onset (ago): week(s) Type of Injury: inversion Severity: moderate Relieving factors: rest Exacerbating factors: weight bearing Context: walking Associated symptoms: swelling and able to partially bear weight Other symptoms: none Related Data Home Medications Medication Instructions Recorded Confirmed levothyroxine 150 mcg capsule 150 mcg PO DAILY 11/17/18 09/29/19 Previous Rx's Medication Instructions Recorded ketorolac 10 mg PO Q6H PRN #14 tab 11/10/20 Allergies Allergy/AdvReac Type Severity Reaction Status Date / Time duloxetine [From Cymbalta] Allergy Verified 11/10/20 16:52 Penicillins Allergy Verified 11/10/20 16:52 Review of Systems Constitutional Constitutional: Denies chills, Denies fatigue, Denies fever(s), Denies frequent falls, Denies lethargy and Denies weakness Eyes Eyes: Denies change in vision, Denies eye discharge, Denies irritation and Denies loss of vision ENT Ears, Nose, Mouth, and Throat: Denies change in voice, Denies dizziness, Denies neck pain, Denies sore throat and Denies throat swelling Cardiovascular Cardiovascular: Denies chest pain, Denies irregular heart rhythm, Denies lightheadedness, Denies palpitations, Denies dyspnea, Denies dyspnea on exertion and Denies orthopnea Respiratory Respiratory: Denies cough, Denies dyspnea, Denies dyspnea on exertion and Denies wheezing Gastrointestinal Gastrointestinal: Denies abdominal pain, Denies change in bowel habits, Denies diarrhea, Denies nausea and Denies vomiting Musculoskeletal Musculoskeletal: Reports joint swelling, Denies neck pain and Denies numbness Integumentary/Breasts Skin/Breast: Denies pruritus, Denies erythema, Denies rash and Denies wounds Neurologic Neurologic: Denies behavioral changes, Denies confusion, Denies dizziness, Denies frequent falls, Denies loss of vision, Denies numbness and Denies weakness Psychiatric Psychiatric: Denies anxiety, Denies behavioral changes, Denies confusion, Denies depression, Denies homicidal ideation and Denies suicidal ideation Endocrine Endocrine: Denies fatigue, Denies flushing and Denies palpitations Hematologic/Lymphatic Hematologic/Lymphatic: Denies easy bruising Allergic/Immunologic Allergic/Immunologic: Denies urticaria, Denies throat swelling and Denies wheezing Patient History Medical History Otitis media Pharyngitis Social History Smoking Status: Current every day smoker Smoking Status: Current every day smoker alcohol intake frequency: holidays/special occasions only Substance Use Type: does not use Exam Narrative Exam Narrative: GEN: AOx3 and in mild distress EYES: Pupils are equal, round, and reactive to light and accommodation. Extraoccular muscles are intact bilaterally. There is no subconjunctival hemorrhage or exudate. CHEST: Lungs are clear to auscultation bilaterally and free of wheezes, rales, or rhonchi. Heart rate is regular rhythm, there are no murmurs, clicks, rubs, or gallops. There is no chest wall tenderness. ABD: Abdomen is soft and nontender. There is no guarding or rebound. Bowel sounds are normal in all 4 quadrants. There is no mass or organomegaly. EXT: Full but painful ROM of R ankle with mild swelling of lateral malleolus. No ligamentious laxity. NO knee pain. Closed, isolated and N/V intact SKIN: Warm, pink, and dry. No erythema or rash Initial Vital Signs Initial Vital Signs: Vital Signs Temperature 97.8 F 11/10/20 16:50 Pulse Rate 78 11/10/20 16:50 Respiratory Rate 15 11/10/20 16:50 Blood Pressure 122/85 11/10/20 16:50 Pulse Oximetry 97 11/10/20 16:50 Procedures Orthopedic Splinting/Casting Injury #1: Side: right Lower Extremity Injury Location: ankle Lower Extremity Immobilizer: AirCast Other Orthopedic Equipment: crutches Post splinting neuro exam: intact Post splinting vascular exam: intact Placed by: Nursing Course Orders Ordered: ED Orders 11/10/20 16:55 XR ankle RT min 3V Stat Vital Signs Vital signs: Vital Signs - 8 hr 11/10/20 16:50 Temperature 97.8 F Pulse Rate 78 Respiratory Rate 15 Blood Pressure 122/85 Pulse Oximetry 97 MDM - Extremity Injury (Lower) Imaging Data Extremity x-ray #1: Radiologist's Impression: [address] [id number] ReportSigned Patient: Malu Joshua MMR#: [id number]: [id number]:[id number]/Sex: 40 / FDate of Service: 11/10/20Loc: EDAccession Number: [id number] Procedure: XR ankle RT min 3V Ordering Provider: Yenny Crowley D.O. PROCEDURE: XR ANKLE RT MIN 3V INDICATIONS: rolled ankle TECHNIQUE: 3 views of the ankle were acquired. COMPARISON: None. FINDINGS: Bones: No acute fractures or dislocations. Ankle mortise is normally aligned. No suspicious bony lesions. Soft tissues: No tibiotalar joint effusion. Achilles tendon appears normal. Lateral malleolar soft tissue swelling. IMPRESSION: Lateral malleolar soft tissue swelling without underlying fracture or dislocation. If there is persistent clinical concern for occult fracture given adequate mechanism of injury, consider repeat imaging in 10-14 days. Dictated by: Brennan Flores M.D. on 11/10/2020 at 16:50 Approved by: Brennan Flores M.D. on 11/10/2020 at 16:53 Discharge Plan Departure Patient Disposition: Home Clinical Impression: Ankle sprain and strain Instructions: Ankle Sprain Activity Restrictions/Additional Instructions: *You have been diagnosed with [acute on chronic ankle sprain with possibility of high ankle sprain] *What to do: *Take medications as directed *Follow up with your primary care provider in 2-3 days, call for an appointment. Let them know you were seen in the Emergency Department and that we ask that you be seen in follow up *Non-weight bearing until you follow up with either your primary provider or orthopedics *Return to ER if you should have any new, worsening or concerning symptoms Prescriptions: New ketorolac 10 mg tablet 10 mg PO Q6H PRN (Reason: pain) Qty: 14 RF: 0 No Action levothyroxine 150 mcg capsule 150 mcg PO DAILY RF: 0 Referrals: [facility] [Outside] Tejas Hilario MD [Physician] - Stand Alone Forms: Work Release Note
[2020-11-10 18:38] VITALS: BP 120/80; PULSE 69; RESP 16; TEMP 36.8; O2SAT 97
== END 2020-11-10 18:38 | disposition home or self-care (01) ==
PROVIDERS: Emergency Provider Emergency Medicine
DX: S93.401A Sprain of unspecified ligament of right ankle, initial encounter (principal); S96.911A Strain of unspecified muscle and tendon at ankle and foot level, right foot, initial encounter; X50.1XXA Overexertion from prolonged static or awkward postures, initial encounter
CPT/HCPCS: 29540; 73610; 99282; 99283

== ENCOUNTER → 2020-12-09 13:40 | Outpatient (CLI) | payer OTHER, SELFPAY ==
--- NOTE | 2020-12-09 | DI.MRI.S_ITS ---
PROCEDURE: MR ANKLE RT W CON INDICATIONS: PAIN IN RIGHT ANKLE TECHNIQUE: After the administration of 5 mL of dilute intra-articular Gadolinium contrast into the tibiotalar joint, sagittal T1 spin echo with and without fat saturation, axial T1 fast spin echo with fat saturation and T2 fast spin echo with fat saturation, coronal T1 spin echo and T2 fast spin echo with fat saturation through the ankle. COMPARISON: [facility], [place], [place] ANKLE INJECTION MR/CT RT, 12/09/2020, 14:02. [facility] [place], [place], XR ANKLE 3+ VIEWS RIGHT, 11/24/2020, 15:38. FINDINGS: Image quality: Excellent. Bones and joints: No bone marrow contusions or fractures. There is a small focus of T2 hyperintensity within the lateral malleolus adjacent to the insertion of the posterior talofibular ligament likely representing an intraosseous ganglion cyst. No hindfoot coalitions. No osteochondral injuries of the talar dome. No discrete intra-articular joint bodies. The tibiotalar joint capsule is of normal thickness throughout. Medial structures: The posterior tibialis, flexor digitorum longus, and flexor hallucis longus tendons are intact. The posterior tibial neurovascular bundle appears normal within the tarsal tunnel, without extrinsic mass effect. The deltoid and spring ligament components appear intact. Lateral structures: The anterior talofibular, calcaneofibular, and posterior talofibular ligaments appear slightly thickened and intermediate in signal suggesting sequelae of prior mild sprains. More superiorly, the anterior and posterior tibiofibular ligaments also appear thickened with intermediate signal consistent with prior moderate sprains. The intermalleolar ligament appears intact. The tibiofibular syndesmosis is normal in width at 2 mm or less. The peroneus longus and brevis tendons demonstrate normal location and morphology. Adjacent bony peroneal tubercle and retrotrochlear prominence are normal in size. The sinus tarsi demonstrates preserved fatty signal with mild edema and cystic change which may reflect sequelae of ligamentous sprains. The calcaneonavicular and calcaneocuboid components of the bifurcate ligament appear intact. The dorsal calcaneocuboid ligament appears intact. Anterior structures: The tibialis anterior, extensor hallucis longus, and extensor digitorum longus tendons appear intact. The dorsal talonavicular ligament appears intact. Posterior and plantar structures: Achilles tendon is intact. There is trace fluid in the retrocalcaneal bursa. Medial and lateral bands of the plantar fascia are of normal thickness. No abductor digiti quinti muscle atrophy to suggest Martino neuropathy. IMPRESSION: 1. No discrete joint bodies identified in the tibiotalar joint. No osteochondral lesions of the talar dome. 2. Sequelae of lateral ligamentous sprains including likely prior moderate sprains of the anterior and posterior talofibular ligaments. 3. Probable intraosseous ganglion cyst within the lateral malleolus adjacent to the insertion of the posterior talofibular ligament. Dictated by: Scotty Nick M.D. on 12/09/2020 at 17:15 Approved by: Scotty Nick M.D. on 12/09/2020 at 17:25
--- NOTE | 2020-12-09 | DI.RAD.S_ITS ---
PROCEDURE: [place] ANKLE INJECTION MR/CT RT INDICATIONS: PAIN IN RIGHT ANKLE COMPARISON: None. TECHNIQUE: After informed consent had been obtained, the ankle was examined fluoroscopically in the lateral projection, and a site for needle placement chosen for entry into the tibiotalar joint from an anterior approach. Care was taken to locate the dorsalis pedis artery beforehand. The skin was prepped and draped in a sterile fashion, and 1% Xylocaine infiltrated from skin down to joint capsule. A hypodermic needle was inserted into the joint, and a small amount of iodinated contrast media injected to confirm intra-articular placement of the needle tip. This was followed by approximately 5 mL dilute solution of a gadolinium containing MR contrast agent. The needle was removed and a dressing was applied. The patient was given postprocedural instructions and sent to the MR suite for MR imaging. The attending radiologist was present during invasive portions of the procedure, and performed all intra-articular injections. FINDINGS: A single fluoroscopic spot image demonstrates intra-articular location of injected iodinated contrast. IMPRESSION: Successful fluoroscopically guided administration of dilute Gadolinium solution into the tibiotalar joint for MR arthrogram. No immediate complications. Dictated by: Lillian Genao MD, PhD on 12/09/2020 at 15:42 Approved by: Lillian Genao MD, PhD on 12/09/2020 at 15:42
== END ==
PROVIDERS: Referring Provider Physician Assistant Medical; Visit Provider Physician Assistant Medical
DX: M25.571 Pain in right ankle and joints of right foot (principal); S93.491S Sprain of other ligament of right ankle, sequela
CPT/HCPCS: 20605; 73722; 77002

== ENCOUNTER 2021-06-17 21:09 | Emergency (ER) | payer OTHER, SELFPAY ==
[2021-06-17 21:21] VITALS: BP 145/84; PULSE 89; RESP 16; TEMP 36.6; O2SAT 98; BMI 32.5
--- NOTE | 2021-06-17 21:24 | DI.RAD.S_ITS ---
PROCEDURE: XR ACUTE ABDOMEN SERIES INDICATIONS: dizzy, nauseated TECHNIQUE: One view chest and two views of the abdomen were acquired. COMPARISON: None. FINDINGS: Surgical changes and devices: Status post cholecystectomy Chest: Lungs are clear. Heart size is normal. No pleural effusions. No pneumoperitoneum. Abdomen: Bowel gas pattern is normal. No suspicious calcifications. Visualized solid organ contours appear normal. The large bowel contains increased stool consistent with constipation. Bones: No suspicious bony lesions. IMPRESSION: No acute plain film abnormality. Dictated by: Narayan Jimenez M.D. on 06/17/2021 at 21:47 Approved by: Narayan Jimenez M.D. on 06/17/2021 at 21:51
[2021-06-17 21:47] LABS: COVID19 -Nasal RAPID Negative (Negative)
[2021-06-17] MEDS: LACTATED RINGERS 1,000 ML 1000 ML IV (21:56)
[2021-06-17 21:57] LABS: Add Manual Diff / Slide Review NO; Basophils Absolute Auto 100 /uL (0-100); Basophils Percent Auto 1.1 % (0-2); Eosinophils Absolute Auto 0 /uL (0-450); Eosinophils Percent Auto 0.6 % (2-4); Lymphocytes Absolute Auto 900 /uL (1100-4500); Lymphocytes Percent Auto 18.2 % (25-40); Mean Corpuscular HGB Conc 34.1 % (30-36); Mean Corpuscular Hemoglobin 29.6 PG (26-34); Mean Corpuscular Volume 86.8 fL (80-100); Monocytes Absolute Auto 400 /uL (0-900); Monocytes Percent Auto 8.6 % (3-14); Neutrophils Absolute Auto 3500 /uL (1500-7000); Neutrophils Percent Auto 71.5 % (50-75); Platelet Count 235 X10^3/uL (150-400); Red Blood Cell Count 4.73 X10^6/uL (4.0-5.2); White Blood Cell Count 4.9 X10^3/uL (4.5-11.0)
[2021-06-17 21:59] LABS: Bacteria Urine None Seen; RBC Urine 0-1/HPF (0-5/HPF); Squamous Epithelial Cell Urine 0-1 /HPF (0-5/HPF); WBC Urine None Seen (0-5/HPF)
[2021-06-17 22:09] LABS: Alanine Aminotransferase 25 IU/L (<35); Albumin Globulin Ratio 1.3 (1.0-2.8); Alkaline Phosphatase 60 U/L (38-126); Aspartate Aminotransferase 34 IU/L (14-36); BUN Creatinine Ratio 15.3 (6-22); Bilirubin Total 0.2 mg/dL (0.2-1.3); Blood Urea Nitrogen 11 mg/dL (7-17); Calcium 8.5 mg/dL (8.4-10.2); Carbon Dioxide 28 mmol/L (22-32); Chloride 105 mmol/L (98-107); Creatine Kinase 71 U/L (30-135); Estimated Glomerular Filt Rate > 60.0 mL/min (>60); Globulin 3.1 g/dL (1.7-4.1); Glucose 108 mg/dL (70-100); HEMOLYSIS < 15 (0-50); Lipase 95 U/L (23-300); Magnesium 2.1 mg/dL (1.6-2.3); Potassium 3.6 mmol/L (3.4-5.1); Sodium 141 mmol/L (137-145); Total Protein 7.1 g/dL (6.3-8.2)
[2021-06-17 22:20] LABS: Troponin I < 0.012 ng/mL (0.01-0.034)
[2021-06-17 22:36] VITALS: BP 117/70; PULSE 92; RESP 14; O2SAT 97
[2021-06-17 22:44] LABS: TSH w/ Reflex to FT4 0.94 uIU/mL (0.47-4.68)
[2021-06-17] MEDS: ONDANSETRON 4 MG/2 ML INJ IV (22:49)
[2021-06-17 23:00] VITALS: BP 124/85; PULSE 83; RESP 18; O2SAT 96
[2021-06-17 23:30] VITALS: BP 122/75; PULSE 79; RESP 16; O2SAT 94
[2021-06-18] VITALS (12 sets, daily range): BP systolic 112–138; BP diastolic 56–88; PULSE 74–89; RESP 11–26; O2SAT 93–99
--- NOTE | 2021-06-18 00:04 | ED.DIZZY ---
HPI - Dizziness General Chief Complaint: Dizziness Stated Complaint: stitches painful/dizzy x1 day Time Seen by Provider: 06/17/21 21:16 History of Present Illness HPI Narrative: 41F daily smoker with history of hypothyroidism presents with a chief complaint of various symptoms gradually worsening over the past 24 hours or so. She states that she has had some vague headache and dizziness as well is nausea. She denies any runny nose, sore throat or cough. She has no chest pain or shortness of breath. She states that she feels fatigued. She denies any change in bowel habits. She states that she started having a decreased appetite two days ago. Her dizziness is worse upon standing and improves when sitting down. She describes dizziness as feeling lightheaded as if she may pass out, she denies any spinning sensation. She has no fever chills, denies any recent trauma and has no neck pain. She denies any blurred vision or trouble with speech. Related Data Home Medications Medication Instructions Recorded Confirmed levothyroxine 150 mcg capsule 150 mcg PO DAILY 11/17/18 09/29/19 Previous Rx's Medication Instructions Recorded ketorolac 10 mg tablet 10 mg PO Q6H PRN #14 tab 11/10/20 Allergies Allergy/AdvReac Type Severity Reaction Status Date / Time duloxetine [From Cymbalta] Allergy Verified 11/10/20 16:52 Penicillins Allergy Verified 11/10/20 16:52 Review of Systems Review of Systems Narrative: GENERAL: Denies chills, fatigue, malaise, fever, sweats. HEENT: Denies sinus pain, ear pain, sore throat, difficulty swallowing, dizziness. RESPIRATORY: Denies dyspnea, cough, wheezing, hemoptysis, sputum. CARDIOVASCULAR: see HPI GASTROINTESTINAL: Denies nausea, vomiting, abdominal pain, diarrhea, constipation, melena. : Denies dysuria, frequency, incontinence, hematuria, urinary retention. MUSCULOSKELETAL: denies weakness, joint pain, or bony pain SKIN: Denies rash, skin lesions, or other NEUROLOGIC: Denies weakness, headache, numbness, change in speech, confusion, seizures, incoordination. PSYCHIATRIC: No concerning psychosocial issues. 12 point review of systems is negative except for those stated above Patient History Medical History (Updated 06/18/21 @ 03:59 by Natan Augustine DO) Otitis media Pharyngitis Social History Smoking Status: Current every day smoker Smoking Status: Current every day smoker alcohol intake frequency: holidays/special occasions only Substance Use Type: does not use Exam Narrative Exam Narrative: GENERAL: [41 year old patient appears stated age. Well-developed patient, in mild distress. HEAD: Atraumatic. Normocephalic. EYES: Pupils equal round and reactive. Extraocular motions intact. No scleral icterus. No injection or drainage. ENT: Nose without bleeding, purulent drainage. Throat without erythema, tonsillar hypertrophy or exudate. Airway patent. NECK: Trachea midline. Non tender CARDIOVASCULAR: Regular rate and rhythm without murmurs, gallops, or rubs. RESPIRATORY: Clear to auscultation. Breath sounds equal bilaterally. No wheezes, rales, or rhonchi. GASTROINTESTINAL: Abdomen soft, non-tender, nondistended. EXTREMITIES: No edema or joint tenderness. BACK: Nontender without deformity or crepitance. No flank tenderness. NEURO: AOx3. SKIN: No rash or erythema of visible areas Initial Vital Signs Initial Vital Signs: Vital Signs Temperature 97.8 F 06/17/21 21:21 Pulse Rate 89 06/17/21 21:21 Respiratory Rate 16 06/17/21 21:21 Blood Pressure 145/84 H 06/17/21 21:21 Pulse Oximetry 98 06/17/21 21:21 Course Orders Ordered: ED Orders 06/17/21 21:18 COVID19 -Nasal swab/Pre-Proc Stat 06/17/21 21:24 XR acute abdomen series Stat EKG-12 Lead Stat 06/17/21 21:30 Urine Culture Stat Urine Microscopic Stat 06/17/21 21:51 Complete Blood Count AUTO DIFF Stat Comprehensive Metabolic Panel Stat Lipase Stat Magnesium Stat TSH w/ Reflex to FT4 Stat Troponin & CK Cardiac Panel Stat 06/18/21 00:27 Respiratory Panel (Film Array) Stat 06/18/21 00:31 Sputum Culture Stat 06/18/21 02:22 CT head/brain wo con Stat 06/18/21 02:34 Creatinine Urine Random Stat Sodium Urine Random Stat Discontinued Medications Lactated Ringer's (Lactated Ringers) 1,000 mls @ 1,000 mls/hr IV BOLUS ONE Stop: 06/17/21 22:22 Last Infusion: 06/17/21 23:24 Dose: 0 mls/hr Documented by: Admin: 06/17/21 21:56 Dose: 1,000 mls/hr Documented by: MAKI Ondansetron HCl (Ondansetron 4 Mg/2 Ml Inj) 4 mg IV NOW ONE Stop: 06/17/21 22:34 Last Admin: 06/17/21 22:49 Dose: 4 mg Documented by: MAKI Vital Signs Vital signs: Vital Signs - 8 hr 06/17/21 21:21 06/17/21 22:36 06/17/21 23:00 Temperature 97.8 F Pulse Rate 89 92 H 83 Pulse Rate [Orthostatic Lying] Pulse Rate [Orthostatic Sitting] Pulse Rate [Orthostatic Standing] Respiratory Rate 16 14 18 Blood Pressure 145/84 H 117/70 124/85 Blood Pressure [Orthostatic Lying] Blood Pressure [Orthostatic Sitting] Blood Pressure [Orthostatic Standing] Pulse Oximetry 98 97 96 06/17/21 23:30 06/18/21 00:05 06/18/21 00:09 Temperature Pulse Rate 79 81 Pulse Rate [Orthostatic Lying] 74 Pulse Rate [Orthostatic Sitting] 89 Pulse Rate [Orthostatic Standing] 88 Respiratory Rate 16 17 Blood Pressure 122/75 119/56 L Blood Pressure [Orthostatic Lying] 119/56 L Blood Pressure [Orthostatic Sitting] 127/85 Blood Pressure [Orthostatic Standing] 138/88 Pulse Oximetry 94 94 06/18/21 00:30 06/18/21 01:21 06/18/21 01:30 Temperature Pulse Rate 80 76 84 Pulse Rate [Orthostatic Lying] Pulse Rate [Orthostatic Sitting] Pulse Rate [Orthostatic Standing] Respiratory Rate 12 16 18 Blood Pressure 132/66 112/62 118/75 Blood Pressure [Orthostatic Lying] Blood Pressure [Orthostatic Sitting] Blood Pressure [Orthostatic Standing] Pulse Oximetry 98 93 94 06/18/21 02:00 06/18/21 02:30 Temperature Pulse Rate 75 83 Pulse Rate [Orthostatic Lying] Pulse Rate [Orthostatic Sitting] Pulse Rate [Orthostatic Standing] Respiratory Rate 14 21 Blood Pressure 122/76 123/82 Blood Pressure [Orthostatic Lying] Blood Pressure [Orthostatic Sitting] Blood Pressure [Orthostatic Standing] Pulse Oximetry 95 96 MDM - Dizziness Lab Data Result diagrams: 06/17/21 21:51 06/17/21 21:51 Labs: Lab Results 06/17/21 06/17/21 06/17/21 Range/Units 21:18 21:30 21:30 WBC (4.5-11.0) X10^3/uL RBC (4.0-5.2) X10^6/uL Hgb (12.0-16.0) g/dL Hct (36-46) % MCV (80-100) fL MCH (26-34) PG MCHC (30-36) % RDW (11.6-14.8) % Plt Count (150-400) X10^3/uL Neut % (Auto) (50-75) % Lymph % (Auto) (25-40) % [place] % (Auto) (3-14) % Eos % (Auto) (2-4) % Baso % (Auto) (0-2) % Neut # (Auto) (0848-0556) /uL Lymph # (Auto) (2209-2417) /uL [place] # (Auto) (0-900) /uL Eos # (Auto) (0-450) /uL Baso # (Auto) (0-100) /uL Sodium (137-145) mmol/L Potassium (3.4-5.1) mmol/L Chloride (98-107) mmol/L Carbon Dioxide (22-32) mmol/L BUN (7-17) mg/dL Creatinine (0.52-1.04) mg/dL Estimated GFR (>60) mL/min BUN/Creatinine Ratio (6-22) Glucose (70-100) mg/dL Calcium (8.4-10.2) mg/dL Magnesium (1.6-2.3) mg/dL Total Bilirubin (0.2-1.3) mg/dL AST (14-36) IU/L ALT (<35) IU/L Alkaline Phosphatase (38-126) U/L Total Creatine Kinase (30-135) U/L CK-MB (CK-2) CK-MB (CK-2) Rel Index Troponin I (0.01-0.034) ng/mL Total Protein (6.3-8.2) g/dL Albumin (3.5-5.0) g/dL Globulin (1.7-4.1) g/dL Albumin/Globulin Ratio (1.0-2.8) Lipase (23-300) U/L TSH (0.47-4.68) uIU/mL Urine RBC 0-1/hpf (0-5/HPF) Urine WBC None seen (0-5/HPF) Ur Squamous Epith Cells 0-1 /hpf (0-5/HPF) Urine Bacteria None seen (None) Ur Culture Indicated? Culture not indicate Ur Random Sodium 15 L (30-90) mmol/L Urine Creatinine 21.1 mg/dL Chlamy pneumoniae PCR (Not Detect) Adenovirus (PCR) (Not Detect) B. pertussis DNA (PCR) (Not Detecte) B.parapertussis DNA PCR (Not Detecte) Coronavirus OC43 (PCR) (Not Detect) Coronavirus HKU1 (PCR) (Not Detect) Coronavirus 229E (PCR) (Not Detect) SARS-CoV-2 (PCR) Negative (Negative) Coronavirus NL63 (PCR) (Not Detect) Human Metapneumovir PCR (Not Detect) Influenza Type A (PCR) (Not Detect) Influenza Type B (PCR) (Not Detect) M. pneumoniae (PCR) (Not Detect) Parainfluenza 1 (PCR) (Not Detect) Parainfluenza 2 (PCR) (Not Detect) Parainfluenza 3 (PCR) (Not Detect) Parainfluenza 4 (PCR) (Not Detect) RSV (PCR) (Not Detect) Entero/Rhino (PCR) (Not Detect) 06/17/21 06/17/21 06/17/21 Range/Units 21:51 21:51 21:51 WBC 4.9 (4.5-11.0) X10^3/uL RBC 4.73 (4.0-5.2) X10^6/uL Hgb 14.0 (12.0-16.0) g/dL Hct 41.0 (36-46) % MCV 86.8 (80-100) fL MCH 29.6 (26-34) PG MCHC 34.1 (30-36) % RDW 15.0 H (11.6-14.8) % Plt Count 235 (150-400) X10^3/uL Neut % (Auto) 71.5 (50-75) % Lymph % (Auto) 18.2 L (25-40) % [place] % (Auto) 8.6 (3-14) % Eos % (Auto) 0.6 L (2-4) % Baso % (Auto) 1.1 (0-2) % Neut # (Auto) 3500 (6708-0436) /uL Lymph # (Auto) 900 L (7050-8753) /uL [place] # (Auto) 400 (0-900) /uL Eos # (Auto) 0 (0-450) /uL Baso # (Auto) 100 (0-100) /uL Sodium 141 (137-145) mmol/L Potassium 3.6 (3.4-5.1) mmol/L Chloride 105 (98-107) mmol/L Carbon Dioxide 28 (22-32) mmol/L BUN 11 (7-17) mg/dL Creatinine 0.72 (0.52-1.04) mg/dL Estimated GFR > 60.0 (>60) mL/min BUN/Creatinine Ratio 15.3 (6-22) Glucose 108 H (70-100) mg/dL Calcium 8.5 (8.4-10.2) mg/dL Magnesium 2.1 (1.6-2.3) mg/dL Total Bilirubin 0.2 (0.2-1.3) mg/dL AST 34 (14-36) IU/L ALT 25 (<35) IU/L Alkaline Phosphatase 60 (38-126) U/L Total Creatine Kinase 71 (30-135) U/L CK-MB (CK-2) TNP CK-MB (CK-2) Rel Index TNP Troponin I < 0.012 (0.01-0.034) ng/mL Total Protein 7.1 (6.3-8.2) g/dL Albumin 4.0 (3.5-5.0) g/dL Globulin 3.1 (1.7-4.1) g/dL Albumin/Globulin Ratio 1.3 (1.0-2.8) Lipase 95 (23-300) U/L TSH 0.94 (0.47-4.68) uIU/mL Urine RBC (0-5/HPF) Urine WBC (0-5/HPF) Ur Squamous Epith Cells (0-5/HPF) Urine Bacteria (None) Ur Culture Indicated? Ur Random Sodium (30-90) mmol/L Urine Creatinine mg/dL Chlamy pneumoniae PCR (Not Detect) Adenovirus (PCR) (Not Detect) B. pertussis DNA (PCR) (Not Detecte) B.parapertussis DNA PCR (Not Detecte) Coronavirus OC43 (PCR) (Not Detect) Coronavirus HKU1 (PCR) (Not Detect) Coronavirus 229E (PCR) (Not Detect) SARS-CoV-2 (PCR) (Negative) Coronavirus NL63 (PCR) (Not Detect) Human Metapneumovir PCR (Not Detect) Influenza Type A (PCR) (Not Detect) Influenza Type B (PCR) (Not Detect) M. pneumoniae (PCR) (Not Detect) Parainfluenza 1 (PCR) (Not Detect) Parainfluenza 2 (PCR) (Not Detect) Parainfluenza 3 (PCR) (Not Detect) Parainfluenza 4 (PCR) (Not Detect) RSV (PCR) (Not Detect) Entero/Rhino (PCR) (Not Detect) 06/18/21 Range/Units 00:27 WBC (4.5-11.0) X10^3/uL RBC (4.0-5.2) X10^6/uL Hgb (12.0-16.0) g/dL Hct (36-46) % MCV (80-100) fL MCH (26-34) PG MCHC (30-36) % RDW (11.6-14.8) % Plt Count (150-400) X10^3/uL Neut % (Auto) (50-75) % Lymph % (Auto) (25-40) % [place] % (Auto) (3-14) % Eos % (Auto) (2-4) % Baso % (Auto) (0-2) % Neut # (Auto) (6155-7103) /uL Lymph # (Auto) (4626-0273) /uL [place] # (Auto) (0-900) /uL Eos # (Auto) (0-450) /uL Baso # (Auto) (0-100) /uL Sodium (137-145) mmol/L Potassium (3.4-5.1) mmol/L Chloride (98-107) mmol/L Carbon Dioxide (22-32) mmol/L BUN (7-17) mg/dL Creatinine (0.52-1.04) mg/dL Estimated GFR (>60) mL/min BUN/Creatinine Ratio (6-22) Glucose (70-100) mg/dL Calcium (8.4-10.2) mg/dL Magnesium (1.6-2.3) mg/dL Total Bilirubin (0.2-1.3) mg/dL AST (14-36) IU/L ALT (<35) IU/L Alkaline Phosphatase (38-126) U/L Total Creatine Kinase (30-135) U/L CK-MB (CK-2) CK-MB (CK-2) Rel Index Troponin I (0.01-0.034) ng/mL Total Protein (6.3-8.2) g/dL Albumin (3.5-5.0) g/dL Globulin (1.7-4.1) g/dL Albumin/Globulin Ratio (1.0-2.8) Lipase (23-300) U/L TSH (0.47-4.68) uIU/mL Urine RBC (0-5/HPF) Urine WBC (0-5/HPF) Ur Squamous Epith Cells (0-5/HPF) Urine Bacteria (None) Ur Culture Indicated? Ur Random Sodium (30-90) mmol/L Urine Creatinine mg/dL Chlamy pneumoniae PCR Not detected (Not Detect) Adenovirus (PCR) Not detected (Not Detect) B. pertussis DNA (PCR) Not detected (Not Detecte) B.parapertussis DNA PCR Not detected (Not Detecte) Coronavirus OC43 (PCR) Not detected (Not Detect) Coronavirus HKU1 (PCR) Not detected (Not Detect) Coronavirus 229E (PCR) Not detected (Not Detect) SARS-CoV-2 (PCR) Not detected (Negative) Coronavirus NL63 (PCR) Not detected (Not Detect) Human Metapneumovir PCR Not detected (Not Detect) Influenza Type A (PCR) Not detected (Not Detect) Influenza Type B (PCR) Not detected (Not Detect) M. pneumoniae (PCR) Not detected (Not Detect) Parainfluenza 1 (PCR) Not detected (Not Detect) Parainfluenza 2 (PCR) Not detected (Not Detect) Parainfluenza 3 (PCR) Not detected (Not Detect) Parainfluenza 4 (PCR) Not detected (Not Detect) RSV (PCR) Not detected (Not Detect) Entero/Rhino (PCR) Not detected (Not Detect) Urine Dip Bedside Urine Glucose Negative Bedside Urine Bilirubin - Negative Bedside Urine Ketone - Negative Urine Specific [place] 1.005 Bedside Urine Occult Blood ++ Bedside Urine pH 6.0 Bedside Urine Protein - Negative Bedside Urine Urobilinogen - Negative Bedside Urine Nitrite - Negative Bedside Urine Leukocytes - Negative Esterase Imaging Data Chest x-ray: Radiologist's Impression: [address] [address] XRay Report Signed Patient: Malu Joshua MR#: [id number] : 1980 Acct:[id number] Age/Sex: 41 / F Date of Service: 06/17/21 Loc: ED Accession Number: [id number] ?? Procedure: XR acute abdomen series Ordering Provider: Natan Augustine D.O. PROCEDURE:? XR ACUTE ABDOMEN SERIES ? INDICATIONS:? dizzy, nauseated ? TECHNIQUE:? One view chest and two views of the abdomen were acquired.? ? COMPARISON:? None. ? FINDINGS:? ? Surgical changes and devices:? Status post cholecystectomy ? Chest:? Lungs are clear.? Heart size is normal.? No pleural effusions.? No pneumoperitoneum.? ? Abdomen:? Bowel gas pattern is normal.? No suspicious calcifications.? Visualized solid organ contours appear normal.? The large bowel contains increased stool consistent with constipation. ? Bones:? No suspicious bony lesions.? ? IMPRESSION:? No acute plain film abnormality. ? ? Dictated by: Narayan Jimenez M.D. on 06/17/2021 at 21:47 ? ? Approved by: Narayan Jimenez M.D. on 06/17/2021 at 21:51 ? MDM Narrative Medical decision making narrative: Multiple etiologies for patient's symptoms considered including: Thyroid abnormality versus electrolyte disturbance versus COVID versus dehydration versus other [] Patient's symptoms improved over duration of stay with above-stated therapies. Findings and discharge diagnosis discussed with patient/family followed by verbalization of understanding Return precautions discussed with patient/family whom verbalize understanding. Discharge Plan Departure Patient Disposition: Home Clinical Impression: Nausea, Near syncope Instructions: DI for Nausea -- Adult, DI for Dizziness-Nonvertigo Activity Restrictions/Additional Instructions: *You have been diagnosed with [Dizziness, near syncope and nausea. Your history, physical exam, labs and imaging are all very reassuring and as we discussed there is no significant finding to suggest the need for a specific or immediate intervention, surgery, or admission *What to do: *Please continue to take your regular medications as directed. [] New medication prescriptions sent to your pharmacy: [ ] [ ] New medication written as a paper prescription [ x] No new medications given *Please follow up with your primary care provider in 2-3 days, call for an appointment. Let them know you were seen in the Emergency Department and that we ask that you be seen in follow up. We will electronically transmit a record of today's note if your PCP is in our system *If you do not have a primary care provider please contact the [facility] Resource line at [phone]. They will ask some questions about your medical history and help get you set up with a doctor in the community. *Return to Emergency Department if you should have any new, worsening or concerning symptoms, such as [fever greater than 101 F, shaking chills, worsening pain, persistent vomiting or other bothersome symptoms] Prescriptions: No Action levothyroxine 150 mcg capsule 150 mcg PO DAILY 0RF ketorolac 10 mg tablet 10 mg PO Q6H PRN (Reason: pain) Qty: 14 0RF
[2021-06-18 01:29] LABS: Adenovirus Not Detected (Not Detect); B. parapertussis Not Detected (Not Detecte); Bordetella pertussis Not Detected (Not Detecte); Chlamydophila pneumoniae Not Detected (Not Detect); Coronavirus 229E Not Detected (Not Detect); Coronavirus HKU1 Not Detected (Not Detect); Coronavirus NL 63 Not Detected (Not Detect); Coronavirus OC43 Not Detected (Not Detect); Human Metapneumovirus Not Detected (Not Detect); Human Rhinovirus/Enterovirus Not Detected (Not Detect); Influenza A Not Detected (Not Detect); Influenza B Not Detected (Not Detect); Mycoplasma pneumoniae Not Detected (Not Detect); Parainfluenza Virus 1 Not Detected (Not Detect); Parainfluenza Virus 2 Not Detected (Not Detect); Parainfluenza Virus 3 Not Detected (Not Detect); Parainfluenza Virus 4 Not Detected (Not Detect); Respiratory Syncytial Virus Not Detected (Not Detect); SARS- CoV-2 Not Detected (Not Detecte)
--- NOTE | 2021-06-18 02:22 | DI.CT.S_ITS ---
PROCEDURE: CT HEAD/BRAIN WO CON INDICATIONS: dizzy, headache TECHNIQUE: Noncontrast 4.5 mm thick angled axial sections acquired from the foramen magnum to the vertex, with coronal and sagittal reformats. For radiation dose reduction, the following was used: automated exposure control, adjustment of mA and/or kV according to patient size. COMPARISON: None. FINDINGS: Image quality: Excellent. CSF spaces: Basal cisterns are patent. No extra-axial fluid collections. Ventricles are normal in size and shape. Brain: No midline shift. No intracranial masses or hemorrhage. [place]-white matter interface is normal. Skull and face: Calvarium and visualized facial bones are intact, without suspicious lesions. Sinuses: Visualized sinuses and mastoids are clear. IMPRESSION: Normal head CT. Note: No significant discrepancy from the preliminary report. Dictated by: Simeon Winter M.D. on 06/18/2021 at 7:25 Approved by: Simeon Winter M.D. on 06/18/2021 at 7:25
[2021-06-18 03:17] LABS: Creatinine Urine Random 21.1 mg/dL; Sodium Urine Random 15 mmol/L (30-90)
== END 2021-06-18 04:10 | disposition home or self-care (01) ==
PROVIDERS: Emergency Provider Emergency Medicine
DX: R42 Dizziness and giddiness (principal); R11.0 Nausea; R55 Syncope and collapse; R51.9 Headache, unspecified; Z20.822 Contact with and (suspected) exposure to COVID-19
CPT/HCPCS: 36415; 70450; 74022; 80053; 81003; 81015; 82550; 82570; 83690; 83735; 84300; 84443; 84484; 85025; 87070; 87086; 87205; 87633; 87635; 96361; 96374; 99284; C9803; J2405

== ENCOUNTER → 2022-05-30 10:16 | Outpatient (CLI) | payer OTHER, SELFPAY ==
--- NOTE | 2022-05-30 10:17 | DI.RAD.S_ITS ---
PROCEDURE: XR FOREARM LT 2V INDICATIONS: LEFT arm pain TECHNIQUE: 2 views of the forearm were acquired. COMPARISON: None. FINDINGS: Bones: No fractures or dislocations. No suspicious bony lesions. Soft tissues: No suspicious soft tissue calcifications or masses. IMPRESSION: No acute finding. Dictated by: Yvan Franks M.D. on 05/30/2022 at 12:31 Approved by: Yvan Franks M.D. on 05/30/2022 at 12:31
== END ==
PROVIDERS: Referring Provider Physician Assistant Medical; Visit Provider Physician Assistant Medical
DX: M79.602 Pain in left arm (principal)
CPT/HCPCS: 73090